=== PATIENT | male | born 1975 | race Caucasian/White ===

== ENCOUNTER 2022-12-16 16:01 | Emergency (ER) | payer OTHER, SELFPAY ==
[2022-12-16 16:08] VITALS: BP 112/71; PULSE 71; RESP 18; TEMP 37.1; O2SAT 97
--- NOTE | 2022-12-16 16:30 | DI.RAD_ITS ---
Exam(s) XR SHOULDER RT COMPLETE 2+V EXAM: XR SHOULDER RT COMPLETE 2+V CLINICAL HISTORY: pain s/p fall. TECHNIQUE: 2D digital imaging was performed. COMPARISON: No exams were available for comparison FINDINGS: Five views Glenohumeral joint appears intact. No fracture or dislocation. Humeral head unremarkable. No calci fications in the subacromial space There is element of distal K castro of the AC joint noted. No fractures the clavicle and acromion. IMPRESSION: AC joint dislocation. Glenohumeral joint appears intact. DATA REPOSITORY: RADIATION DOSE DELIVERED:
--- NOTE | 2022-12-16 16:30 | DI.RAD_ITS ---
Exam(s) XR CLAVICLE RT EXAM: XR CLAVICLE RT CLINICAL HISTORY: pain s/p fall. TECHNIQUE: 2D digital imaging was performed. COMPARISON: No exams were available for comparison FINDINGS: Two views: There is subluxation of the AC joint. No fractures of the lateral clavicle nor of the a chromium. No radiopaque foreign body. IMPRESSION: Subluxation of the right AC joint. DATA REPOSITORY: RADIATION DOSE DELIVERED:
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
--- NOTE | 2022-12-16 17:32 | DI.VRAD_ITS ---
PROCEDURE INFORMATION: Exam: XR Right Shoulder Exam date and time: 12/16/2022 4:47 PM Age: 47 years old Clinical indication: Pain; Shoulder; Right TECHNIQUE: Imaging protocol: Radiologic exam of the right shoulder. Views: 2 or more views. COMPARISON: No relevant prior studies available. FINDINGS: Bones/joints: Superior displacement of the distal right clavicle. No fracture. The coracoclavicular space is normal. Soft tissues: Soft tissue swelling. IMPRESSION: Right acromioclavicular separation. Dictated and Authenticated by: Breezy Taylor MD. Ordering:KAYLEE Rudolph MD
--- NOTE | 2022-12-16 17:32 | DI.VRAD_ITS ---
PROCEDURE INFORMATION: Exam: XR Right Clavicle, Complete Exam date and time: 12/16/2022 4:49 PM Age: 47 years old Clinical indication: Pain; Shoulder; Right TECHNIQUE: Imaging protocol: Radiologic exam of the right clavicle. Complete exam. Views: Any number of views. COMPARISON: CR XR SHOULDER RT COMPLETE 2+V 12/16/2022 4:47 PM FINDINGS: Bones/joints: No fracture. Right acromioclavicular separation. Soft tissues: Soft tissue swelling. IMPRESSION: Right acromioclavicular separation. Dictated and Authenticated by: Breezy Taylor MD. Ordering:KAYLEE Rudolph MD
[2022-12-16 17:58] VITALS: PULSE 84; RESP 18; O2SAT 99
== END 2022-12-16 17:58 | disposition home or self-care (01) ==
PROVIDERS: Emergency Provider Emergency Medicine
DX: M25.511 Pain in right shoulder; S43.101A Unspecified dislocation of right acromioclavicular joint, initial encounter; V19.9XXA Pedal cyclist (driver) (passenger) injured in unspecified traffic accident, initial encounter
CPT/HCPCS: 99283; 73000; 73030; 99284